=== PATIENT | male | born 1985 | race Caucasian/White ===

== ENCOUNTER 2017-07-29 13:43 | Inpatient (IN) | payer BC ==
[~2017-07-29] VITALS: Ht 177.8 cm; Wt 106.8 kg
[~2017-07-29 13:43] MED LIST: CIPRO 500MG TA500 MG PO; NO HOME MEDICATIONS; NORCO 325 MG-7.1 TAB PO; PYRIDIUM 100MG100 MG PO
[2017-07-29 14:02] LABS: COLLECTION METHOD CLEAN CATCH
[2017-07-29 14:09] LABS: MUCOUS Present /lpf; PH 5 (5-8); SQUAMOUS EPITHELIAL None Seen /hpf; URINE APPEARANCE Hazy; URINE BACTERIA None Seen /hpf; URINE BILIRUBIN Negative (NEGATIVE); URINE BLOOD 3+ (NEGATIVE); URINE COLOR Yellow; URINE GLUCOSE Negative (NEGATIVE); URINE KETONE Negative (NEGATIVE); URINE LEUKOCYTE ESTERASE 1+ (NEGATIVE); URINE NITRATE Negative (NEGATIVE); URINE PROTEIN(semi-quant) 2+ (NEGATIVE); URINE UROBILINOGEN Negative (NEGATIVE)
[2017-07-29 14:19] LABS: BASO # 0.1 (0.0-0.2); BASO % 0.5 % (0.0-2.0); EOS # 0.2 (0.0-0.7); EOS % 2.6 % (0-4.0); GRAN # 6.4 (1.4-6.5); HEMATOCRIT 46.7 % (42.0-52.0); HEMOGLOBIN 16.1 g/dl (13.5-18.0); LYMPH # 1.7 (1.2-3.4); MEAN CELL VOLUME 85 fl (80.0-100.0); MEAN CORPUSCULAR HEMOGLOBIN 29 pg (27.0-31.0); MEAN CORPUSCULAR HGB CONC 35 g/dl (33.0-37.0); MEAN PLATELET VOLUME 9.3 fl (7.4-10.4); MONO # 0.7 (0.1-0.6); MONO % 7.6 % (1.7-9.3); PLATELET COUNT 255 K/mm3 (130-400); RED BLOOD COUNT 5.47 M/mm3 (4.20-5.60); REDCELL DISTRIBUTION WIDTH-CV 12.2 % (11.5-14.5)
[2017-07-29] MEDS ORDERED: UROXATRAL10 M1 PO (14:19)
[2017-07-29 14:31] LABS: ALBUMIN 4.6 gm/dL (3.5-5.0); CALCIUM 9.5 mg/dL (8.4-10.2); CREATININE, serum 1.11 mg/dL (0.66-1.25)
[2017-07-29 17:51] VITALS: BP 106/55; PULSE 97; TEMP 97.8
[2017-07-29 20:09] VITALS: BP 135/59; PULSE 64; TEMP 98
[2017-07-30] VITALS (8 sets, daily range): BP systolic 116–141; BP diastolic 50–83; PULSE 65–90; TEMP 98–98.4
[2017-07-30] MEDS ORDERED: NORCO 325 MG-51 TAB PO (11:40)
[2017-07-30] MEDS ORDERED: PYRIDIUM 100MG100 MG PO (11:41)
== END 2017-07-30 12:20 | disposition home or self-care (01) | DRG 660 ==
LOC: COL.ER 13:43 → SURG 17:07
PROVIDERS: Emergency Medicine; Urology
PROC: 0T578ZZ Destruction of Left Ureter, Via Natural or Artificial Opening Endoscopic (ICD-10-PCS; principal; 2017-07-30 08:00)
PROC: 0T778ZZ Dilation of Left Ureter, Via Natural or Artificial Opening Endoscopic (ICD-10-PCS; 2017-07-30 08:00)
PROC: BT1FZZZ Fluoroscopy of Left Kidney, Ureter and Bladder (ICD-10-PCS; 2017-07-30 08:00)
DX: N13.2 Hydronephrosis with renal and ureteral calculous obstruction (principal)
CPT/HCPCS: C1769; C2617; G0378; J0690; J0696; J1100; J1885; J2270; J2405; J2550; J2704; J3010; J7030; J7120; Q9967

== ENCOUNTER 2017-10-17 13:19 | Day surgery (SDC) | payer BC ==
[2017-10-16 19:02] VITALS: BP 132/53; PULSE 70; TEMP 98
[~2017-10-17] VITALS: Ht 180.3 cm; Wt 109.5 kg
[2017-10-17] VITALS (11 sets, daily range): BP systolic 109–150; BP diastolic 52–86; PULSE 63–90; TEMP 97.3–98.2
[~2017-10-17 13:19] MED LIST changes: +NORCO 325 MG-51 TAB PO; +UROXATRAL10 M1 PO
[2017-10-17] MEDS ORDERED: NORCO 325 MG-51 TAB PO (17:54)
[2017-10-17] MEDS ORDERED: COLACE 100100 MG/CAP PO (17:54)
[2017-10-17] MEDS ORDERED: PYRIDIUM 100MG100 MG PO (17:55)
[2017-10-18 04:55] VITALS: BP 132/61; PULSE 73; TEMP 98.2
[2017-10-18 07:59] VITALS: BP 127/69; PULSE 87; TEMP 98.2
== END 2017-10-18 10:15 | disposition home or self-care (01) ==
LOC: SDCO 13:19 → SURG 19:00 → SDCO 10-18 10:15
DX: N20.2 Calculus of kidney with calculus of ureter (principal); Q63.1 Lobulated, fused and horseshoe kidney
CPT/HCPCS: OP; C1769; C2617; J0690; J1170; J1885; J2175; J2405; J2550; J2704; J3010; J7120

== ENCOUNTER 2017-10-20 18:00 | Emergency (ER) | payer BC ==
[~2017-10-20] VITALS: Ht 177.8 cm; Wt 106.8 kg
[~2017-10-20 18:00] MED LIST changes: +COLACE 100100 MG/CAP PO
[2017-10-20 18:04] VITALS: BP 139/99; TEMP 97.7
[2017-10-20 18:24] LABS: COLLECTION METHOD CLEAN CATCH
[2017-10-20 18:32] LABS: BASO # 0.1 (0.0-0.2); BASO % 0.6 % (0.0-2.0); EOS # 0.2 (0.0-0.7); EOS % 1.8 % (0-4.0); GRAN # 5.3 (1.4-6.5); GRAN % 58.9 % (42.2-75.2); HEMATOCRIT 45.5 % (42.0-52.0); HEMOGLOBIN 15.6 g/dl (13.5-18.0); LYMPH # 2.6 (1.2-3.4); LYMPH % 28.4 % (20.0-51.0); MEAN CELL VOLUME 87 fl (80.0-100.0); MEAN CORPUSCULAR HEMOGLOBIN 30 pg (27.0-31.0); MEAN CORPUSCULAR HGB CONC 34 g/dl (33.0-37.0); MEAN PLATELET VOLUME 9.4 fl (7.4-10.4); MONO # 0.9 (0.1-0.6); PLATELET COUNT 274 K/mm3 (130-400); RED BLOOD COUNT 5.24 M/mm3 (4.20-5.60); REDCELL DISTRIBUTION WIDTH-CV 12.5 % (11.5-14.5)
[2017-10-20 18:36] LABS: MUCOUS Present /lpf; PH 6 (5-8); SQUAMOUS EPITHELIAL None Seen /hpf; URINE APPEARANCE Clear; URINE BACTERIA None Seen /hpf; URINE BILIRUBIN Negative (NEGATIVE); URINE BLOOD 2+ (NEGATIVE); URINE COLOR Yellow; URINE GLUCOSE Negative (NEGATIVE); URINE KETONE Negative (NEGATIVE); URINE LEUKOCYTE ESTERASE Negative (NEGATIVE); URINE NITRATE Negative (NEGATIVE); URINE PROTEIN(semi-quant) Negative (NEGATIVE); URINE RBC 20-50 /hpf; URINE UROBILINOGEN Negative (NEGATIVE)
[2017-10-20 18:39] LABS: CALCIUM 8.8 mg/dL (8.4-10.2); CREATININE, serum 0.98 mg/dL (0.66-1.25); POTASSIUM 4.3 mmol/L (3.4-5.0)
[2017-10-20 20:28] VITALS: PULSE 73
== END 2017-10-20 20:28 | disposition home or self-care (01) ==
LOC: COL.ER 18:00
PROVIDERS: Emergency Medicine
DX: N20.1 Calculus of ureter (principal); N23 Unspecified renal colic
CPT/HCPCS: J0780; J1170; J1885; J2405; J7030

== ENCOUNTER 2017-10-21 19:01 | Observation (INO) | payer BC ==
[~2017-10-21] VITALS: Ht 180.3 cm; Wt 106.8 kg
[2017-10-21 21:13] VITALS: BP 151/79; PULSE 73; TEMP 98.5
[2017-10-22 05:40] VITALS: BP 128/71; PULSE 70; TEMP 98.6
[2017-10-22 08:16] VITALS: BP 148/89; PULSE 71; TEMP 97.9
[2017-10-22 11:15] VITALS: BP 141/84; PULSE 68; TEMP 98.8
== END 2017-10-22 15:45 | disposition home or self-care (01) ==
LOC: SURG 19:01
DX: N20.1 Calculus of ureter (principal)
CPT/HCPCS: G0378; J1885; J2270; J2405; J7030

== ENCOUNTER 2017-10-23 15:36 | Day surgery (SDC) | payer BC ==
[~2017-10-23] VITALS: Ht 180.3 cm; Wt 105.9 kg
[2017-10-23 16:31] VITALS: BP 157/93; PULSE 88; TEMP 98.3
[2017-10-23 19:30] VITALS: BP 136/74; PULSE 80; TEMP 98.2
[2017-10-23 23:06] VITALS: BP 123/60; PULSE 75; TEMP 98.5
[2017-10-24] VITALS (7 sets, daily range): BP systolic 111–152; BP diastolic 53–81; PULSE 56–111; TEMP 98–98.5
== END 2017-10-24 13:00 | disposition home or self-care (01) ==
LOC: SURG 15:36 → SDCO 15:36 → EDSTATUS 10-24 07:30 → SURG 10-24 13:00 → SDCO 10-24 13:00
DX: N20.1 Calculus of ureter (principal); Q63.1 Lobulated, fused and horseshoe kidney; Z87.442 Personal history of urinary calculi
CPT/HCPCS: C1769; C1894; C2617; G0378; J0360; J0690; J1100; J1885; J2405; J2704; J3010; J7030; Q9967

== ENCOUNTER 2020-12-04 04:07 | Observation (INO) | payer BC ==
[~2020-12-04] VITALS: Ht 177.8 cm; Wt 106.4 kg
--- NOTE | 2020-12-04 05:11 | NUR ---
RECEIVED REPORT FROM ER NURSE, ISMA HUNTER FROM [facility]. PATIENT TO BE TRANSFERED VIA EMS FROM [facility], DEPARTED FROM [facility] AROUND 0450. AWAITING PATIENT ARRIVAL FOR ADMIT TO ROOM 328.
--- NOTE | 2020-12-04 06:22 | NUR ---
PATIENT ADMITTED TO ROOM 328 VIA EMS CART. AMB TO STAND AND WALK OVER TO BED THEN REQUESTED TO USE BATHROOM, VOIDED LARGE AMOUNT CLEAR YELLOW URINE. REPORTS PAIN LEVEL 3/10. IV FLUIDS INFUSING PER GRAVITY WITH NO PROBLEMS. DENIES NAUSEA AT THIS TIME.
[2020-12-04 06:24] VITALS: BP 151/95; PULSE 64; TEMP 97.9
[2020-12-04] MEDS ORDERED: ALLOPURINOL PO (06:39)
--- NOTE | 2020-12-04 07:24 | NUR ---
Pt doing okay this am. Reports pain 3-4/10 at this time, stating it is tolerable. IV fluids infusing to left AC. Pt is aware that he is to not have anything to eat or drink as a possible surgery planned for today. No needs verbalized, call light within reach
--- NOTE | 2020-12-04 07:24 | NUR ---
REPORT GIVEN TO DAY SHIFT NURSE, DIONISIO RN WITH STUDENT NURSE MANUEL PRESENT.
[2020-12-04 07:58] VITALS: BP 151/87; PULSE 65; TEMP 98.1
--- NOTE | 2020-12-04 08:36 | NUR ---
Pt off the floor for surgery at this time
[2020-12-04] MEDS ORDERED: NORCO 325 MG-51 TAB PO (09:46)
[2020-12-04] MEDS ORDERED: FLOMAX 0.40.4 MG/CAP PO (09:46)
[2020-12-04 10:15] VITALS: BP 133/76; PULSE 64
[2020-12-04 10:30] VITALS: BP 127/82; PULSE 62; TEMP 97.7
[2020-12-04 10:45] VITALS: BP 122/68; PULSE 69
[2020-12-04 10:47] VITALS: BP 133/76; PULSE 65
--- NOTE | 2020-12-04 11:00 | NUR ---
Pt back from surgery. He is doing well with little pain complaints. Educated on room service and discharge plan. Assisted with ordering lunch
--- NOTE | 2020-12-04 12:16 | NUR ---
Reviewed discharge instructions with pt and his spouse. Verbalized understanding. VSS and pt has tolerated a general diet for lunch. INT removed from left AC. Educated pt that the office will call him with a follow up appointment. Informed pt to ring call light when he is ready for discharge
--- NOTE | 2020-12-04 12:25 | NUR ---
Pt escorted out at this time
== END 2020-12-04 12:26 | disposition home or self-care (01) ==
LOC: MEDICAL 04:07 → SURG 06:20
PROVIDERS: ADMIT Urology
DX: N13.2 Hydronephrosis with renal and ureteral calculous obstruction (principal); Q63.1 Lobulated, fused and horseshoe kidney
CPT/HCPCS: C1769; G0378; J0690; J1100; J1885; J2405; J2704; J3010; Q9967

== ENCOUNTER 2020-12-07 14:52 | Observation (INO) | payer BC ==
[~2020-12-07] VITALS: Ht 177.8 cm; Wt 109.4 kg
[~2020-12-07 14:52] MED LIST changes: +ALLOPURINOL PO; +FLOMAX 0.40.4 MG/CAP PO
--- NOTE | 2020-12-07 15:42 | NUR ---
Dr Brennan notified of consult at 153, requested gallbladder US be completed today. US notified, returned call and stated the [employer] tech has gone home for the day and no one is available for call to come in.
[2020-12-07 16:12] VITALS: BP 116/68; PULSE 67; TEMP 98.2
[2020-12-07 16:17] LABS: BASO % 0.7 % (0.0-2.0); EOS # 0.2 K/mm3 (0.0-0.7); GRAN # 3.6 K/mm3 (1.4-6.5); GRAN % 60.6 % (42.2-75.2); HEMATOCRIT 47.9 % (42.0-52.0); LYMPH # 1.4 K/mm3 (1.2-3.4); LYMPH % 23.7 % (20.0-51.0); MEAN CELL VOLUME 89 fl (80.0-100.0); MEAN CORPUSCULAR HEMOGLOBIN 30 pg (27.0-31.0); MEAN CORPUSCULAR HGB CONC 33 g/dl (33.0-37.0); MEAN PLATELET VOLUME 9.8 fl (7.4-10.4); MONO # 0.7 K/mm3 (0.1-0.6); MONO % 11.5 % (1.7-9.3); PLATELET COUNT 250 K/mm3 (130-400); RED BLOOD COUNT 5.38 M/mm3 (4.20-5.60); REDCELL DISTRIBUTION WIDTH-CV 12.8 % (11.5-14.5)
[2020-12-07] MEDS ORDERED: ZYLOPRIM 300MG300 MG PO (16:34)
[2020-12-07 16:35] LABS: ALBUMIN 3.7 gm/dL (3.5-5.0); BILIRUBIN,TOTAL 2.3 mg/dL (0.2-1.2); CREATININE, serum 0.95 mg/dL (0.72-1.25); TOTAL PROTEIN 7.4 gm/dL (6.2-8.1)
--- NOTE | 2020-12-07 17:20 | NUR ---
Dr Brennan here to see patient.
[2020-12-07 17:37] LABS: COLLECTION METHOD CLEAN CATCH
[2020-12-07 17:56] LABS: MUCOUS Present /lpf; PH 5 (5-8); SQUAMOUS EPITHELIAL None Seen /hpf; URINE APPEARANCE Clear; URINE BACTERIA None Seen /hpf; URINE BILIRUBIN Negative (NEGATIVE); URINE BLOOD 1+ (NEGATIVE); URINE COLOR Amber; URINE GLUCOSE Negative (NEGATIVE); URINE KETONE Negative (NEGATIVE); URINE LEUKOCYTE ESTERASE Negative (NEGATIVE); URINE NITRATE Positive (NEGATIVE); URINE PROTEIN(semi-quant) 1+ (NEGATIVE); URINE UROBILINOGEN >=4.0 mg/dL (NEGATIVE)
[2020-12-07 19:13] VITALS: BP 129/72; PULSE 67; TEMP 98.2
[2020-12-08] VITALS (15 sets, daily range): BP systolic 114–157; BP diastolic 58–91; PULSE 57–90; TEMP 97.9–99
--- NOTE | 2020-12-08 02:04 | NUR ---
ALERT AND OX4. DENIES SOA, CHEST PAIN OR DIZZY. SOME INTERMITTENT NAUSEA. PAIN MED MS GIVEN. NPO AT 12. UNDERSTANDS POC. IND IN ROOM. NEEDS ARE MET. CALL LIGHT WI REACH.
--- NOTE | 2020-12-08 09:22 | NUR ---
SW met with the patient to discuss discharge plan. The patient lives with his , Selene (ph#[phone]), and family in [place]. He reports independence with ADLs and does not have any DME. The patient's PCP is Dr. Emilee Muro in [place] and he receives his medications from [facility] in [place]. He reports no difficulties obtaining his meds. The patient does not have a DPOA-HC and he was not interested in completing one at this time. The patient plans to return home with his family upon discharge. No additional needs at this time. *Discharge plan: home with family*
--- NOTE | 2020-12-08 09:29 | NUR ---
Patient alert and oriented, answers questions appropriately. See assessment. Abdomen soft, tender, non distended. Bowel sounds active x4 quads. +Flatus. C/o occasional RUQ pain. No other c/o at this time.
--- NOTE | 2020-12-08 10:57 | NUR ---
First visit from the systems protection technician. No needs right now.
--- NOTE | 2020-12-08 12:18 | NUR ---
Chlorhexadine shower completed. Surgical consent signed
[2020-12-08 12:50] LABS: ALBUMIN 3.9 gm/dL (3.5-5.0); BILIRUBIN,TOTAL 1.7 mg/dL (0.2-1.2); CALCIUM 9.5 mg/dL (8.4-10.2); POTASSIUM 4.1 mmol/L (3.4-5.0); TOTAL PROTEIN 7.3 gm/dL (6.4-8.2)
--- NOTE | 2020-12-08 14:47 | NUR ---
Patient to surgery with surgical staff at 1415.
--- NOTE | 2020-12-08 17:21 | NUR ---
Patient returns from lap yohan. Assessment unchanged except lap sites to abdomen with band aids CDI. Bowel sounds active. Abdomen tender to palpation. Post op exercises reviewed with patient. No c/o at this time.
--- NOTE | 2020-12-08 23:00 | NUR ---
ALERT AND ORIENTATED X 4. DENIES SOA,CHEST PAIN OR DIZZY. OFF POSTOP VITALS, DENIES PAIN OR STATES ITS TOLERABLE. POC DISCUSSED WI PT . UP IND IN ROOM. VOIDING AND TOLERATING CLEAR LIQ. LAPS SITE X3 TO LOWER ABD. C/D/I. CALL LIGHT WI REACH. NEEDS MET.
[2020-12-09] VITALS (11 sets, daily range): BP systolic 98–147; BP diastolic 44–76; PULSE 57–107; TEMP 97.9–99.2
--- NOTE | 2020-12-09 05:52 | NUR ---
RESTED THROUGH THE NIGHT WITHOUT INCIDENT. NPO FOR ERCP TODAY AT NOON. NEEDS MET.
--- NOTE | 2020-12-09 10:29 | NUR ---
PT INDEPENDENT IN AND OUT OF ROOM. PLAN ON ERCP AROUND NOON THEN POSSIBLE DISCHARGE AFTER THAT.
--- NOTE | 2020-12-09 13:11 | NUR ---
PT TO ROOM 329 PER CART WITH REPORT FROM IRENE HUNTER @ 1590. PT IS A/O X4 BUT A LITTLE GROGY. UPDATED DR. PABLO ON PT STATUS NEW DIET TOLERATED. 3 MM STONE REMOVED BY REPORT. PT POSSIBLE DISCHARGE LATER THIS PM.
[2020-12-09 18:14] LABS: BASO # 0.1 K/mm3 (0.0-0.2); BASO % 0.4 % (0.0-2.0); EOS % 0.3 % (0-4.0); GRAN # 9.6 K/mm3 (1.4-6.5); GRAN % 84.1 % (42.2-75.2); HEMOGLOBIN 16.1 g/dl (13.5-18.0); LYMPH % 9.1 % (20.0-51.0); MEAN CELL VOLUME 87 fl (80.0-100.0); MEAN CORPUSCULAR HEMOGLOBIN 30 pg (27.0-31.0); MEAN CORPUSCULAR HGB CONC 34 g/dl (33.0-37.0); MEAN PLATELET VOLUME 9.5 fl (7.4-10.4); MONO # 0.7 K/mm3 (0.1-0.6); MONO % 5.8 % (1.7-9.3); PLATELET COUNT 283 K/mm3 (130-400); RED BLOOD COUNT 5.41 M/mm3 (4.20-5.60); REDCELL DISTRIBUTION WIDTH-CV 12.5 % (11.5-14.5)
[2020-12-09 18:38] LABS: ALBUMIN 3.8 gm/dL (3.5-5.0); BILIRUBIN,TOTAL 1.1 mg/dL (0.2-1.2); CALCIUM 9.3 mg/dL (8.4-10.2); CREATININE, serum 0.92 mg/dL (0.72-1.25); POTASSIUM 3.7 mmol/L (3.5-4.5); TOTAL PROTEIN 7.6 gm/dL (6.2-8.1)
--- NOTE | 2020-12-09 22:52 | NUR ---
ALERT AND OX4. DENIES SOA, CHEST PAIN OR DIZZY. DENIES PAIN. ERCP DONE TODAY. HAVING GAS PAIN IN RT SHOULDER. AMBULATING AND CHEWYING GUM. POC DISCUSSED. DC TOMORROW. CALL LIGHT WI REACH. NEEDS MET.
[2020-12-10 04:29] VITALS: BP 118/51; PULSE 69; TEMP 98.2
--- NOTE | 2020-12-10 05:33 | NUR ---
RESTED THROUGH THE NIGHT WITHOUT INCIDENT. NAYA RAMIREZ TODAY.
[2020-12-10 07:25] VITALS: BP 127/64; PULSE 64; TEMP 98.2
--- NOTE | 2020-12-10 08:45 | NUR ---
Pt drowsy this AM when this student obtained VS and assessment. Pt continued to sleep until 0800. This student nurse DCed IV, cannula intact no signs of irritation or phlebitis at IV site. Pt denied pain to area. 0900 medication administered and floor nurse gave discharge teaching.
--- NOTE | 2020-12-10 08:46 | NUR ---
DISCHARGE INSTRUCTIONS REVIEWED WITH PT, QUESTIONS SOLICITED AND ANSWERED. PT'S WILL CALL ON ARRIVAL.
== END 2020-12-10 09:30 | disposition home or self-care (01) ==
LOC: SURG 14:52
PROVIDERS: Urology; ADMIT Surgery
DX: K80.12 Calculus of gallbladder with acute and chronic cholecystitis without obstruction (principal); K80.51 Calculus of bile duct without cholangitis or cholecystitis with obstruction; Q63.1 Lobulated, fused and horseshoe kidney; N20.0 Calculus of kidney; K31.89 Other diseases of stomach and duodenum; R94.5 Abnormal results of liver function studies; Z79.891 Long term (current) use of opiate analgesic; Z79.899 Other long term (current) drug therapy; Z20.822 Contact with and (suspected) exposure to COVID-19
CPT/HCPCS: C1769; G0378; G0379; J0690; J1100; J1885; J2270; J2405; J2704; J3010; J7120; Q9967